=== PATIENT | male | born 1990 | race Caucasian/White ===

== ENCOUNTER 2019-07-15 08:01 | Emergency (ER) | payer OTHER ==
[~2019-07-15] VITALS: Ht 182.9 cm; Wt 90.0 kg
[2019-07-15] MEDS ORDERED: SODIUM CHLORIDE 0.9% 1,000 ML IV ONE (08:20)
[2019-07-15 08:41] VITALS: BP 138/102
== END 2019-07-15 08:44 | disposition left against medical advice (07) ==
LOC: ER 08:01
DX: T40.601A Poisoning by unspecified narcotics, accidental (unintentional), initial encounter (principal); Y92.89 Other specified places as the place of occurrence of the external cause
CPT/HCPCS: 82962; 99283; J7030